=== PATIENT | male | born 2000 | race Caucasian/White ===

== ENCOUNTER 2020-09-18 13:56 | Emergency (ER) | payer MEDICAID ==
[~2020-09-18] VITALS: Ht 175.3 cm; Wt 84.8 kg
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
--- NOTE | 2020-09-18 14:25 | NUR ---
PT TO IMAGING
[2020-09-18 15:10] VITALS: BP 135/71
--- NOTE | 2020-09-18 15:44 | NUR ---
DISCHARGE INSTRUCTIONS REVIEWED WITH PT. ALL QUESTIONS ANSWERED AT THIS TIME.
== END 2020-09-18 15:47 | disposition home or self-care (01) ==
LOC: ED 15:30
DX: S09.90XA Unspecified injury of head, initial encounter (principal); M54.6 Pain in thoracic spine; R11.10 Vomiting, unspecified; V40.6XXA Car passenger injured in collision with pedestrian or animal in traffic accident, initial encounter; Y93.89 Activity, other specified; Y92.410 Unspecified street and highway as the place of occurrence of the external cause; Y99.8 Other external cause status
CPT/HCPCS: 70450; 72072; 99284

== ENCOUNTER 2020-09-29 12:32 | Emergency (ER) | payer MEDICAID ==
[~2020-09-29] VITALS: Ht 175.3 cm; Wt 86.4 kg
[2020-09-29 12:43] VITALS: BP 148/81
== END 2020-09-29 13:27 | disposition home or self-care (01) ==
LOC: ED 13:15
DX: Z00.00 Encounter for general adult medical examination without abnormal findings (principal); R11.10 Vomiting, unspecified; F17.210 Nicotine dependence, cigarettes, uncomplicated; Z89.022 Acquired absence of left finger(s)
CPT/HCPCS: 99281; 99406

== ENCOUNTER 2021-01-28 01:34 | Emergency (ER) | payer MEDICAID ==
[~2021-01-28] VITALS: Ht 165.1 cm; Wt 77.0 kg
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
--- NOTE | 2021-01-28 01:44 | NUR ---
PT ATTEMPTING TO USE COMPUTER IN THE ROOM. PT REDIRECTED TO NOT ATTEMPT TO LOGIN TO [facility].
--- NOTE | 2021-01-28 01:45 | NUR ---
PT ATTEMPTING TO GET OUT OF BED, PT VERY UNSTEADY ON FEET REQUIRES MULTIPLE RN TO ASSIST BACK TO BED
--- NOTE | 2021-01-28 01:50 | NUR ---
PT PULLING ALL WIRES AND MONITORS FROM WALL WHILE SHOUTING THAT HE NEEDS POLICE TO FILE A REPORT. PT NOT FOLLOWING COMMANDS AND IS NOT REDIRECTABLE.
--- NOTE | 2021-01-28 01:55 | NUR ---
PT HAS PULLED ALL MONITORING FROM WALL AND MONITOR BOX AND THROWN COMPUTER TO FLOOR
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
--- NOTE | 2021-01-28 02:15 | NUR ---
PT STILL SCREAMING AT STAFF, THREATENING TO "KILL EVERY ONE OF YOU ONCE I LEAVE THIS PLACE"
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
--- NOTE | 2021-01-28 02:30 | NUR ---
rpd at bedside
[2021-01-28 02:33] VITALS: BP 142/86
--- NOTE | 2021-01-28 03:20 | NUR ---
PT PROVIDED ICE CHIPS AT REQUEST, PT MORE CALM AT THIS TIME.
--- NOTE | 2021-01-28 03:25 | NUR ---
PT OUT OF ALL RESTRAINTS AT THIS TIME
--- NOTE | 2021-01-28 03:40 | NUR ---
PT AMBULATES WITH STEADY GAIT, ABLE TO VERBALIZE ADDRESS AND SAFE DC PLAN IS AT HOME WAITING FOR HIM.
--- NOTE | 2021-01-28 03:59 | NUR ---
PT REFUSING DC VITALS, WILL NOT LET RN RCK BP OR PULSE OX
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
== END 2021-01-28 04:11 | disposition home or self-care (01) ==
LOC: ED 02:13
DX: F10.129 Alcohol abuse with intoxication, unspecified (principal); Z72.9 Problem related to lifestyle, unspecified; F12.10 Cannabis abuse, uncomplicated; Y90.0 Blood alcohol level of less than 20 mg/100 ml
CPT/HCPCS: 99283